=== PATIENT | female | born 2000 | race Caucasian/White ===

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

== ENCOUNTER 2020-01-04 14:56 | Emergency (ER) | payer OTHER ==
[~2020-01-04] VITALS: Ht 177.8 cm; Wt 114.5 kg
[2020-01-04 14:58] VITALS: BP 121/58
[2020-01-04] MEDS ORDERED: CIPROFLOXACIN HC OTIC SUSPENSION AD ONE (15:45)
[2020-01-04] MEDS ORDERED: CIPRODEX AD (15:46)
== END 2020-01-04 15:53 | disposition home or self-care (01) ==
LOC: M ED 14:56
DX: H60.8X1 Other otitis externa, right ear (principal)

== ENCOUNTER 2020-03-04 13:17 | Emergency (ER) | payer OTHER ==
[~2020-03-04 13:17] MED LIST changes: +CIPRODEX AD
== END 2020-03-04 14:59 | disposition home or self-care (01) ==
LOC: M ED 13:17
DX: J02.9 Acute pharyngitis, unspecified (principal); R50.9 Fever, unspecified

== ENCOUNTER 2020-07-04 18:05 | Emergency (ER) | payer OTHER ==
[~2020-07-04] VITALS: Ht 177.8 cm; Wt 113.6 kg
[2020-07-04] MEDS ORDERED: METOCLOPRAMIDE 10 MG TAB PO ONE (18:30)
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
[2020-07-04 20:27] VITALS: BP 136/61
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
== END 2020-07-04 20:31 | disposition home or self-care (01) ==
LOC: M ED 18:05 → EDBD 18:05 → M ED 20:31
DX: S00.93XA Contusion of unspecified part of head, initial encounter (principal); S13.4XXA Sprain of ligaments of cervical spine, initial encounter; S63.602A Unspecified sprain of left thumb, initial encounter; V47.6XXA Car passenger injured in collision with fixed or stationary object in traffic accident, initial encounter; Y92.410 Unspecified street and highway as the place of occurrence of the external cause

== ENCOUNTER 2021-01-31 09:26 | Emergency (ER) | payer OTHER ==
[~2021-01-31] VITALS: Ht 177.8 cm; Wt 104.5 kg
[~2021-01-31 09:26] MED LIST changes: +CIPR7.5D5 AD; -CIPRODEX AD
[2021-01-31] MEDS ORDERED: ACETAMINOPHEN 500 MG TAB PO ONE (10:00)
[2021-01-31 11:08] LABS: MONO SCRN NEGATIVE (NEGATIVE)
[2021-01-31] MEDS ORDERED: PENI500T PO (12:19)
[2021-01-31 12:36] VITALS: BP 110/61
== END 2021-01-31 12:38 | disposition home or self-care (01) ==
LOC: M ED 09:26
DX: Z20.822 Contact with and (suspected) exposure to COVID-19 (principal); J02.9 Acute pharyngitis, unspecified; J03.90 Acute tonsillitis, unspecified; F17.200 Nicotine dependence, unspecified, uncomplicated
CPT/HCPCS: 84702; 86308; 99283; U0003

== ENCOUNTER 2021-03-28 19:50 | Emergency (ER) | payer OTHER ==
[~2021-03-28] VITALS: Ht 177.8 cm; Wt 104.5 kg
[~2021-03-28 19:50] MED LIST changes: +PENI500T PO
[2021-03-28] MEDS ORDERED: LIDOCAINE W/EPINEPHRINE 1% 20ML VIAL SC ONE (20:25)
[2021-03-28] MEDS ORDERED: ACETAMINOPHEN 325 MG TAB PO ONE (22:55)
[2021-03-28 22:57] VITALS: BP 130/78
== END 2021-03-28 22:58 | disposition home or self-care (01) ==
LOC: M ED 19:50
DX: S01.81XA Laceration without foreign body of other part of head, initial encounter (principal); F43.0 Acute stress reaction; F32.9 Major depressive disorder, single episode, unspecified; F17.200 Nicotine dependence, unspecified, uncomplicated; F12.10 Cannabis abuse, uncomplicated; X78.8XXA Intentional self-harm by other sharp object, initial encounter; Y92.9 Unspecified place or not applicable; Y93.89 Activity, other specified; Y99.9 Unspecified external cause status

== ENCOUNTER 2021-04-02 10:37 | Emergency (ER) | payer OTHER ==
[~2021-04-02] VITALS: Ht 177.8 cm; Wt 100.4 kg
[2021-04-02 10:37] VITALS: BP 143/83
== END 2021-04-02 13:40 | disposition left against medical advice (07) ==
LOC: M ED 10:37
DX: Z53.21 Procedure and treatment not carried out due to patient leaving prior to being seen by health care provider (principal)

== ENCOUNTER → 2022-04-27 | Outpatient (CLI) | payer MEDICAID, OTHER ==
[2022-04-27 18:02] LABS: BASO % 0.1 % (0.0-1.0); EOS # 0.2 10^3/uL (0.0-0.5); EOS % 1.3 % (0.0-3.0); HEMATOCRIT 37.4 % (36.0-47.0); HEMOGLOBIN 12.1 g/dl (12.0-15.5); LYMPH % 22.1 % (24.0-44.0); MEAN CORPUSCULAR HEMOGLOBIN 32.2 pg (27.0-33.0); MEAN CORPUSCULAR HGB CONC 32.4 g/dl (32.0-36.5); MEAN CORPUSCULAR VOLUME 99.5 fl (80.0-96.0); MONO # 0.8 10^3/uL (0.0-0.8); MONO % 5.6 % (2.0-8.0); NEUTROPHILS # 9.5 10^3/uL (1.5-8.5); NEUTROPHILS % 70.4 % (36.0-66.0); PLATELET COUNT, AUTOMATED 221 10^3/uL (150-450); RED BLOOD COUNT 3.76 10^6/uL (4.00-5.40); WHITE BLOOD COUNT 13.5 10^3/uL (4.0-10.0)
[2022-04-27 20:15] LABS: HEPATITIS C VIRUS ABY INDEX < 0.0 INDEX (<0.8); HIV 1&2 SCREEN CENTAUR NEGATIVE (NEGATIVE)
[2022-04-27 21:06] LABS: GC DNA AMPLIFICATION NEGATIVE (NEGATIVE)
== END ==
LOC: M PLALAB 15:06
PROVIDERS: ATTEND Obstetrics & Gynecology
DX: Z34.91 Encounter for supervision of normal pregnancy, unspecified, first trimester (principal)

== ENCOUNTER → 2022-06-21 | Outpatient (CLI) | payer OTHER | LOC: M WHC 12:10 | PROVIDERS: ATTEND Obstetrics & Gynecology | DX: Z36.89 Encounter for other specified antenatal screening (principal); Z3A.19 19 weeks gestation of pregnancy ==

== ENCOUNTER → 2022-08-27 | Outpatient (CLI) | payer OTHER | LOC: M WHC 12:03 | PROVIDERS: ATTEND Obstetrics & Gynecology | DX: Z36.2 Encounter for other antenatal screening follow-up (principal) ==

== ENCOUNTER → 2022-09-02 | Outpatient (CLI) | payer OTHER ==
[2022-09-02 13:50] LABS: HEMATOCRIT 36.7 % (36.0-47.0); HEMOGLOBIN 11.9 g/dl (12.0-15.5); MEAN CORPUSCULAR HEMOGLOBIN 33.2 pg (27.0-33.0); MEAN CORPUSCULAR HGB CONC 32.4 g/dl (32.0-36.5); MEAN CORPUSCULAR VOLUME 102.5 fl (80.0-96.0); PLATELET COUNT, AUTOMATED 189 10^3/uL (150-450); RED BLOOD COUNT 3.58 10^6/uL (4.00-5.40)
[2022-09-02 16:05] LABS: GC DNA AMPLIFICATION NEGATIVE (NEGATIVE)
[2022-09-03 07:07] LABS: CYTOMEGALOVIRUS IgG ANTIBODY <0.60 U/mL (0.00-0.59); CYTOMEGALOVIRUS IgM ANTIBODY <30.0 AU/mL (0.0-29.9); TOXOPLASMA IgG ABY <3.0 IU/mL (0.0-7.1)
== END ==
LOC: M PLALAB 10:21
PROVIDERS: ATTEND Obstetrics & Gynecology
DX: O36.5930 Maternal care for other known or suspected poor fetal growth, third trimester, not applicable or unspecified (principal); Z3A.00 Weeks of gestation of pregnancy not specified

== ENCOUNTER → 2022-09-10 | Outpatient (CLI) | payer OTHER | LOC: M WHC 12:09 | PROVIDERS: ATTEND Obstetrics & Gynecology | DX: O36.5930 Maternal care for other known or suspected poor fetal growth, third trimester, not applicable or unspecified (principal); Z3A.30 30 weeks gestation of pregnancy ==

== ENCOUNTER → 2022-09-17 | Outpatient (CLI) | payer OTHER | LOC: M WHC 13:07 | PROVIDERS: ATTEND Obstetrics & Gynecology | DX: O36.5930 Maternal care for other known or suspected poor fetal growth, third trimester, not applicable or unspecified (principal); Z3A.32 32 weeks gestation of pregnancy ==

== ENCOUNTER → 2022-09-24 | Outpatient (CLI) | payer OTHER | LOC: M WHC 13:38 | PROVIDERS: ATTEND Obstetrics & Gynecology | DX: O36.5930 Maternal care for other known or suspected poor fetal growth, third trimester, not applicable or unspecified (principal) ==

== ENCOUNTER → 2022-09-29 | Outpatient (CLI) | payer OTHER | LOC: M WHC 14:22 | PROVIDERS: ATTEND Obstetrics & Gynecology | DX: O28.8 Other abnormal findings on antenatal screening of mother (principal); O36.5930 Maternal care for other known or suspected poor fetal growth, third trimester, not applicable or unspecified; Z3A.33 33 weeks gestation of pregnancy ==

== ENCOUNTER → 2022-10-08 | Outpatient (CLI) | payer OTHER | LOC: M WHC 13:15 | PROVIDERS: ATTEND Obstetrics & Gynecology | DX: O36.5930 Maternal care for other known or suspected poor fetal growth, third trimester, not applicable or unspecified (principal); Z3A.35 35 weeks gestation of pregnancy ==

== ENCOUNTER → 2022-10-14 | Outpatient (REF) | payer OTHER | LOC: M PLALAB 09:47 | PROVIDERS: ATTEND Advanced Practice Midwife | DX: Z34.80 Encounter for supervision of other normal pregnancy, unspecified trimester (principal) ==

== ENCOUNTER 2022-11-05 15:55 | Inpatient (IN) | payer OTHER ==
[~2022-11-05] VITALS: Ht 175.3 cm; Wt 98.3 kg
[2022-11-05 16:32] VITALS: BP 130/59
[2022-11-05] MEDS ORDERED: METHYLERGONOVINE MALEATE 0.2MG/ML 1ML VIAL IM PRN (17:30)
[2022-11-05] MEDS ORDERED: miSOPROStol 50MCG 1/2 TABLET PO SCH (17:30)
[2022-11-05] MEDS ORDERED: CARBOPROST TROMETHAMINE 250 MCG/ML AMP IM PRN (17:30)
[2022-11-05] MEDS ORDERED: OXYTOCIN DRIP 30 UNITS in IV 1 EA IV PRN (17:30)
[2022-11-05] MEDS ORDERED: TRANEXAMIC ACID INJection 1,000 MG in NS 100 ML IV PRN (17:30)
[2022-11-05] MEDS ORDERED: LIDOCAINE 1% MDV 20ML VIAL INFIL PRN (17:30)
[2022-11-05 17:41] VITALS: BP 130/65
[2022-11-05 17:46] LABS: HEMATOCRIT 33.7 % (36.0-47.0); MEAN CORPUSCULAR HGB CONC 32.6 g/dl (32.0-36.5); MEAN CORPUSCULAR VOLUME 101.2 fl (80.0-96.0); PLATELET COUNT, AUTOMATED 226 10^3/uL (150-450); RED BLOOD COUNT 3.33 10^6/uL (4.00-5.40); WHITE BLOOD COUNT 15.6 10^3/uL (4.0-10.0)
[2022-11-05 18:49] VITALS: BP 136/62
[2022-11-05 19:51] VITALS: BP 122/64
[2022-11-05 21:47] VITALS: BP 120/57
[2022-11-05 23:14] VITALS: BP 119/59
[2022-11-05] MEDS ORDERED: OXYTOCIN DRIP 30 UNITS in IV 1 EA IV SCH (23:35)
[2022-11-05] MEDS ORDERED: diphenhydrAMINE 50MG CAP PO PRN (23:45)
[2022-11-06] VITALS (57 sets, daily range): BP systolic 89–177; BP diastolic 46–81
[2022-11-06] MEDS: LR 1,000 ML IV SCH ×4 (00:27→16:41)
[2022-11-06] MEDS ORDERED: PROMETHAZINE 25MG/ML 1ML VIAL IV ONE ×2 (08:00→11:50)
[2022-11-06] MEDS ORDERED: BUTORPHANOL 2 MG/ML 1ML VIAL IV ONE ×2 (08:00→11:50)
[2022-11-06] MEDS ORDERED: diphenhydrAMINE 50MG/ML VIAL IV PRN (17:30)
[2022-11-06] MEDS ORDERED: LR 500 ML IV PRN (17:30)
[2022-11-06] MEDS ORDERED: ePHEDrine SULFATE 25 MG/5 ML(5MG/ML) SYRINGE IVP PRN (17:30)
[2022-11-06] MEDS ORDERED: ONDANSETRON 4MG 2ML VIAL IV PRN ×2 (17:30→23:10)
[2022-11-06] MEDS ORDERED: EPIDURAL/PCA KEYS XX PRN (17:30)
[2022-11-06] MEDS ORDERED: NALOXONE INJ 0.4MG/1ML VIAL IV PRN (17:30)
[2022-11-06] MEDS: FENTANYL/ROPIVACAINE/NACL BAG 100 ML EPIDURAL SCH (17:52)
[2022-11-06] MEDS ORDERED: TRANEXAMIC ACID INJection 1,000 MG in NS 100 ML IV PRN (21:55)
[2022-11-06] MEDS ORDERED: ceFAZolin SOD 2 GM in IV 1 EA IV ONE (21:55)
[2022-11-06] MEDS ORDERED: CARBOPROST TROMETHAMINE 250 MCG/ML AMP IM PRN (21:55)
[2022-11-06] MEDS ORDERED: BICITRA 30ML SOLN UDC PO ONE (21:55)
[2022-11-06] MEDS ORDERED: AZITHROMYCIN INJ 500 MG, VIAL MATE ADAPTER 1 EACH in NS 250 ML IV ONE (21:55)
[2022-11-06] MEDS ORDERED: METHYLERGONOVINE MALEATE 0.2MG/ML 1ML VIAL IM PRN (21:55)
[2022-11-06] MEDS ORDERED: ceFAZolin 2 GM/D5W 50 ML IV BAG As Ordered ONE (21:59)
[2022-11-06] MEDS ORDERED: BICITRA 30ML SOLN UDC As Ordered ONE (21:59)
[2022-11-06] MEDS ORDERED: KETOROLAC 60MG 2ML VIAL As Ordered ONE (22:34)
[2022-11-06] MEDS ORDERED: LIDOCAINE 2% W/EPINEPHRINE 20ML VIAL **PRES FREE As Ordered ONE (22:34)
[2022-11-06] MEDS ORDERED: ONDANSETRON 4MG 2ML VIAL As Ordered ONE (22:34)
[2022-11-06 22:42] LABS: CORD GAS ABE V -1.7; CORD GAS HCO3 V 23.3 MEQ/L; CORD GAS O2 SAT V 91.7 %; CORD GAS PCO2 V 40.5 mmHg; CORD GAS PH V 7.378 UNITS; CORD GAS PO2 V 46.1 mmHg; CORD GAS SBC V 22.9 MEQ/L; CORD GAS TCO2 V 24.6 MEQ/L
[2022-11-06] MEDS ORDERED: MORPHINE PRES-FREE INJ 10 MG/10 ML VIAL As Ordered ONE (22:47)
[2022-11-06 22:55] LABS: CORD GAS ABE A -4.3; CORD GAS O2 SAT A 63.4 %; CORD GAS PCO2 A 44.8 mmHg; CORD GAS PH A 7.309 UNITS; CORD GAS PO2 A 26.3 mmHg; CORD GAS SBC A 20.2 MEQ/L; CORD GAS TCO2 A 23.4 MEQ/L
[2022-11-06] MEDS ORDERED: MEPERIDINE 50 MG/ML 1ML VIAL As Ordered ONE (22:59)
[2022-11-06] MEDS ORDERED: OXYTOCIN DRIP 30 UNITS in IV 1 EA IV SCH (23:10)
[2022-11-06] MEDS ORDERED: SIMETHICONE 80MG CHEW TAB PO PRN (23:10)
[2022-11-06] MEDS ORDERED: ANUSOL HC CREAM 30GM TOP PRN (23:10)
[2022-11-06] MEDS ORDERED: ACETAMINOPHEN 500 MG TAB PO PRN (23:10)
[2022-11-06] MEDS ORDERED: PERCOCET 5MG/325MG TAB PO PRN (23:10)
[2022-11-06] MEDS ORDERED: RHOGAM 300MCG (1500IU) INJ IM SCH (23:10)
[2022-11-06] MEDS ORDERED: IBUP80TA PO (23:13)
[2022-11-06] MEDS ORDERED: COLA100C5 PO (23:13)
[2022-11-06] MEDS ORDERED: PERCOCET PO (23:14)
[2022-11-06] MEDS ORDERED: OXYTOCIN 30UNITS IN 0.9% NaCl 500ML IV BAG As Ordered ONE (23:34)
[2022-11-07] MEDS ORDERED: PERCOCET 5MG/325MG TAB As Ordered ONE (00:06)
[2022-11-07 02:54] VITALS: BP 112/58
[2022-11-07] MEDS: FENTANYL/ROPIVACAINE/NACL BAG 100 ML EPIDURAL SCH (03:30)
[2022-11-07] MEDS: KETOROLAC 30 MG/ML 1ML VIAL IV SCH ×3 (06:03→17:17)
[2022-11-07 07:05] LABS: HEMATOCRIT 29.6 % (36.0-47.0); HEMOGLOBIN 9.6 g/dl (12.0-15.5); MEAN CORPUSCULAR HEMOGLOBIN 33.2 pg (27.0-33.0); MEAN CORPUSCULAR HGB CONC 32.4 g/dl (32.0-36.5); MEAN CORPUSCULAR VOLUME 102.4 fl (80.0-96.0); PLATELET COUNT, AUTOMATED 188 10^3/uL (150-450); RED BLOOD COUNT 2.89 10^6/uL (4.00-5.40)
[2022-11-07] MEDS ORDERED: oxyCODONE 5MG TAB PO PRN (07:50)
[2022-11-07] MEDS ORDERED: MEPERIDINE 25 MG/ML 1ML VIAL IV PRN (07:50)
[2022-11-07] MEDS ORDERED: ONDANSETRON 4MG 2ML VIAL IV PRN (07:50)
[2022-11-07] MEDS ORDERED: HYDROMORPHONE HCL 0.5 MG/ 0.5 ML SYRINGE IV PRN (07:50)
[2022-11-07] MEDS: PERCOCET 5MG/325MG TAB PO PRN ×2 (07:58→15:38)
[2022-11-07] MEDS: PRENATAL VITAMINS CHEWABLE TABLET PO SCH (08:00)
[2022-11-07] MEDS: DOCUSATE SODIUM 100MG CAPSULE PO SCH ×2 (08:00→20:18)
[2022-11-07 10:00] VITALS: BP 119/55
[2022-11-07 14:00] VITALS: BP 110/60
[2022-11-07 18:00] VITALS: BP 101/54
[2022-11-07 22:00] VITALS: BP 108/55
[2022-11-08] MEDS: IBUPROFEN 800 MG TAB PO SCH ×2 (01:00→08:33)
[2022-11-08 02:00] VITALS: BP 113/67
[2022-11-08 06:00] VITALS: BP 90/53
[2022-11-08] MEDS: PRENATAL VITAMINS CHEWABLE TABLET PO SCH (08:32)
[2022-11-08] MEDS: DOCUSATE SODIUM 100MG CAPSULE PO SCH (08:33)
[2022-11-08] MEDS ORDERED: MEASLES,MUMPS,RUBELLA VACCINE INJ (MMR-II) SC.IMMUN ONE (09:00)
[2022-11-08 10:00] VITALS: BP 117/63
[2022-11-08 18:00] VITALS: BP 124/66
== END 2022-11-08 19:05 | disposition home or self-care (01) | DRG 540 ==
LOC: M LDI 15:55 → M OBS 11-07 00:57
PROVIDERS: ADMIT Advanced Practice Midwife; ATTEND Obstetrics & Gynecology
PROC: 3E0P7GC Introduction of Other Therapeutic Substance into Female Reproductive, Via Natural or Artificial Opening (ICD-10-PCS; 2022-11-05)
PROC: 10D00Z1 Extraction of Products of Conception, Low, Open Approach (ICD-10-PCS; principal; 2022-11-06 22:20)
DX: O36.5930 Maternal care for other known or suspected poor fetal growth, third trimester, not applicable or unspecified (principal); F17.290 Nicotine dependence, other tobacco product, uncomplicated; Z3A.39 39 weeks gestation of pregnancy; O99.334 Smoking (tobacco) complicating childbirth; O62.0 Primary inadequate contractions; Z37.0 Single live birth

== ENCOUNTER → 2024-02-29 | Outpatient (CLI) | payer OTHER ==
[~2024-02-29] MED LIST changes: +COLA100C5 PO; +IBUP80TA PO; +PERCOCET PO
[2024-02-29 12:51] LABS: HEMOGLOBIN 12.6 g/dl (12.0-15.5); MEAN CORPUSCULAR HEMOGLOBIN 31.5 pg (27.0-33.0); MEAN CORPUSCULAR HGB CONC 32.3 g/dl (32.0-36.5); MEAN CORPUSCULAR VOLUME 97.5 fl (80.0-96.0); PLATELET COUNT, AUTOMATED 212 10^3/uL (150-450); WHITE BLOOD COUNT 12.1 10^3/uL (4.0-10.0)
[2024-02-29 13:25] LABS: HIV 1&2 SCREEN NEGATIVE (NEGATIVE)
[2024-02-29 13:33] LABS: HEPATITIS C VIRUS ABY INDEX < 0.02 INDEX (<0.8)
== END ==
LOC: M PLALAB 10:48
PROVIDERS: ATTEND Advanced Practice Midwife
DX: Z34.81 Encounter for supervision of other normal pregnancy, first trimester (principal)

== ENCOUNTER → 2024-03-28 | Outpatient (CLI) | payer OTHER ==
[2024-03-28 14:43] LABS: GC DNA AMPLIFICATION NEGATIVE (NEGATIVE)
== END ==
LOC: M PLALAB 09:15
PROVIDERS: ATTEND Obstetrics & Gynecology
DX: Z34.81 Encounter for supervision of other normal pregnancy, first trimester (principal)

== ENCOUNTER → 2024-04-04 | Outpatient (CLI) | payer OTHER | LOC: M RAD 13:17 | PROVIDERS: ATTEND Physician Assistant | DX: Z53.9 Procedure and treatment not carried out, unspecified reason (principal) ==

== ENCOUNTER → 2024-04-17 | Outpatient (CLI) | payer OTHER | LOC: M PLALAB 12:51 | PROVIDERS: ATTEND Obstetrics & Gynecology | DX: Z36.89 Encounter for other specified antenatal screening (principal) ==

== ENCOUNTER → 2024-05-31 | Outpatient (CLI) | payer OTHER | LOC: M WHC 09:11 | PROVIDERS: ATTEND Obstetrics & Gynecology | DX: Z34.92 Encounter for supervision of normal pregnancy, unspecified, second trimester (principal) ==

== ENCOUNTER → 2024-06-19 | Outpatient (CLI) | payer OTHER ==
[2024-06-19 17:43] LABS: GLUCOSE CHALLENGE TEST 1 HOUR 74 MG/DL (LESS THAN 140)
[2024-06-19 17:46] LABS: HEMATOCRIT 36.4 % (36.0-47.0); HEMOGLOBIN 11.8 g/dl (12.0-15.5); MEAN CORPUSCULAR HEMOGLOBIN 33.2 pg (27.0-33.0); MEAN CORPUSCULAR HGB CONC 32.4 g/dl (32.0-36.5); MEAN CORPUSCULAR VOLUME 102.5 fl (80.0-96.0); PLATELET COUNT, AUTOMATED 197 10^3/uL (150-450); RED BLOOD COUNT 3.55 10^6/uL (4.00-5.40)
[2024-06-19 18:12] LABS: HIV 1&2 SCREEN NEGATIVE (NEGATIVE)
[2024-06-19 18:19] LABS: HEPATITIS C VIRUS ABY INDEX 0.02 INDEX (<0.8)
[2024-06-19 18:46] LABS: GC DNA AMPLIFICATION NEGATIVE (NEGATIVE)
== END ==
LOC: M PLALAB 13:10
PROVIDERS: ATTEND Obstetrics & Gynecology
DX: Z34.92 Encounter for supervision of normal pregnancy, unspecified, second trimester (principal)

== ENCOUNTER → 2024-07-20 | Outpatient (CLI) | payer OTHER | LOC: M WHC 14:25 | PROVIDERS: ATTEND Obstetrics & Gynecology | DX: Z34.92 Encounter for supervision of normal pregnancy, unspecified, second trimester (principal) ==

== ENCOUNTER → 2024-09-12 | Outpatient (REF) | payer OTHER | LOC: M SFHCWAGY 12:25 | PROVIDERS: ATTEND Nurse Practitioner Family | DX: Z36.89 Encounter for other specified antenatal screening (principal); Z3A.36 36 weeks gestation of pregnancy ==

== ENCOUNTER 2024-10-09 03:00 | Inpatient (IN) | payer OTHER ==
[~2024-10-09] VITALS: Ht 177.8 cm; Wt 112.4 kg
[2024-10-09] VITALS (35 sets, daily range): BP systolic 91–122; BP diastolic 48–71; TEMP 97.3; O2SAT 99–100
[2024-10-09] MEDS ORDERED: OXYTOCIN INJ 10UNITS/ML 1ML VIAL IM PRN (03:30)
[2024-10-09] MEDS ORDERED: CARBOPROST TROMETHAMINE 250 MCG/ML AMP IM PRN (03:30)
[2024-10-09] MEDS ORDERED: TRANEXAMIC ACID INJection 1,000 MG in NS 100 ML IV PRN (03:30)
[2024-10-09] MEDS ORDERED: LIDOCAINE 1% MDV 20ML VIAL INFIL PRN (03:30)
[2024-10-09] MEDS ORDERED: METHYLERGONOVINE MALEATE 0.2MG/ML 1ML VIAL IM PRN (03:30)
[2024-10-09] MEDS ORDERED: OXYTOCIN DRIP 30 UNITS in IV 1 EA IV PRN (03:30)
[2024-10-09 04:00] LABS: HEMATOCRIT 34.7 % (36.0-47.0); HEMOGLOBIN 11.6 g/dl (12.0-15.5); MEAN CORPUSCULAR HGB CONC 33.4 g/dl (32.0-36.5); MEAN CORPUSCULAR VOLUME 98.9 fl (80.0-96.0); PLATELET COUNT, AUTOMATED 230 10^3/uL (150-450); RED BLOOD COUNT 3.51 10^6/uL (4.00-5.40); WHITE BLOOD COUNT 17.3 10^3/uL (4.0-10.0)
[2024-10-09 05:53] LABS: HIV 1&2 SCREEN NEGATIVE (NEGATIVE)
[2024-10-09 06:00] LABS: HEPATITIS C VIRUS ABY INDEX 0.18 INDEX (<0.8)
[2024-10-09] MEDS: LACTATED RINGER'S 1000 ML IV STA (06:12)
[2024-10-09] MEDS ORDERED: OXYTOCIN DRIP 30 UNITS in IV 1 EA IV SCH (09:45)
[2024-10-09] MEDS: LR 1,000 ML IV SCH ×2 (10:18→21:56)
[2024-10-09] MEDS ORDERED: diphenhydrAMINE 50MG/ML VIAL IV PRN (17:20)
[2024-10-09] MEDS ORDERED: NALOXONE INJ 0.4MG/1ML VIAL IV PRN ×3 (17:20→22:10)
[2024-10-09] MEDS ORDERED: ONDANSETRON 4MG 2ML VIAL IV PRN ×2 (17:20→22:10)
[2024-10-09] MEDS ORDERED: EPIDURAL/PCA KEYS XX PRN (17:20)
[2024-10-09] MEDS: FENTANYL/ROPIVACAINE/NACL BAG 100 ML EPIDURAL SCH (18:15)
[2024-10-09] MEDS: LR 500 ML IV PRN (18:18)
[2024-10-09] MEDS: ePHEDrine SULFATE 25 MG/5 ML(5MG/ML) SYRINGE IVP PRN (18:19)
[2024-10-09] MEDS ORDERED: LIDOCAINE 2% W/EPINEPHRINE 20ML VIAL **PRES FREE As Ordered ONE (19:52)
[2024-10-09] MEDS ORDERED: OXYTOCIN 30UNITS IN 0.9% NaCl 500ML IV BAG As Ordered ONE (19:52)
[2024-10-09] MEDS ORDERED: MORPHINE PRES-FREE INJ 10 MG/10 ML VIAL As Ordered ONE (19:52)
[2024-10-09] MEDS: BICITRA 30ML SOLN UDC PO ONE (19:54)
[2024-10-09] MEDS: AZITHROMYCIN INJ 500 MG, VIAL MATE ADAPTER 1 EACH in NS 250 ML IV ONE (19:54)
[2024-10-09] MEDS: ceFAZolin SODIUM 2 GM in DEXTROSE 5% (D5W) ADV/MINI-BAG 50 ML IV ONE (20:05)
[2024-10-09] MEDS ORDERED: ePHEDrine SULFATE 25 MG/5 ML(5MG/ML) SYRINGE As Ordered ONE (20:23)
[2024-10-09] MEDS ORDERED: ACETAMINOPHEN 1000MG/100ML IV BAG As Ordered ONE (20:23)
[2024-10-09] MEDS ORDERED: PHENYLephrine 500MCG 5ML (100MCG/ML) SYRINGE As Ordered ONE (20:23)
[2024-10-09] MEDS ORDERED: KETOROLAC 60MG 2ML VIAL As Ordered ONE (20:31)
[2024-10-09] MEDS ORDERED: ONDANSETRON 4MG 2ML VIAL As Ordered ONE (20:31)
[2024-10-09] MEDS ORDERED: RHOGAM 300MCG (1500IU) INJ IM SCH (20:50)
[2024-10-09] MEDS ORDERED: DOCUSATE SODIUM 100MG CAPSULE PO PRN (20:50)
[2024-10-09] MEDS ORDERED: SIMETHICONE 80MG CHEW TAB PO PRN (20:50)
[2024-10-09 22:09] LABS: CORD GAS ABE A -3.8; CORD GAS HCO3 A 24.5 MMOL/L; CORD GAS O2 SAT A 18.7 %; CORD GAS PCO2 A 57.9 mmHg; CORD GAS PH A 7.244 UNITS; CORD GAS PO2 A 11.8 mmHg; CORD GAS SBC A 19.5 MMOL/L; CORD GAS TCO2 A 26.3 MMOL/L
[2024-10-09] MEDS ORDERED: METOCLOPRAMIDE INJ 10MG/2ML VIAL IV PRN (22:10)
[2024-10-09] MEDS ORDERED: HYDROMORPHONE HCL 0.5 MG/ 0.5 ML SYRINGE IV PRN (22:10)
[2024-10-09] MEDS ORDERED: MEPERIDINE 25 MG/ML 1ML VIAL IV PRN (22:10)
[2024-10-09] MEDS: SLF 3 ML SYR IV SCH (22:10)
[2024-10-09] MEDS ORDERED: oxyCODONE 5MG TAB PO PRN (22:10)
[2024-10-09] MEDS ORDERED: **NOTE PATIENT COMMENT** MISC XX SCH (22:10)
[2024-10-09] MEDS ORDERED: fentaNYL 100 MCG/2 ML INJECTION IV PRN (22:10)
[2024-10-10 00:30] VITALS: BP 107/59; O2SAT 100
[2024-10-10] MEDS: diphenhydrAMINE 50MG/ML VIAL IV PRN (00:45)
[2024-10-10 01:30] VITALS: BP 112/61; O2SAT 99
[2024-10-10] MEDS: KETOROLAC 30 MG/ML 1ML VIAL IV SCH (03:53)
[2024-10-10 04:30] VITALS: BP 114/52; O2SAT 98
[2024-10-10 05:58] VITALS: BP 109/54; O2SAT 99
[2024-10-10 07:05] LABS: HEMATOCRIT 31.2 % (36.0-47.0); HEMOGLOBIN 10.3 g/dl (12.0-15.5); PLATELET COUNT, AUTOMATED 213 10^3/uL (150-450); RED BLOOD COUNT 3.12 10^6/uL (4.00-5.40); WHITE BLOOD COUNT 21.3 10^3/uL (4.0-10.0)
[2024-10-10] MEDS ORDERED: COLA100C5 PO (07:46)
[2024-10-10] MEDS ORDERED: OXYC1TAB23 PO (07:46)
[2024-10-10] MEDS ORDERED: IBUP80TA PO (07:46)
[2024-10-10] MEDS: PRENATAL VITAMINS CHEWABLE TABLET PO SCH (07:49)
[2024-10-10 10:00] VITALS: BP 108/63; O2SAT 100
[2024-10-10] MEDS ORDERED: IBUPROFEN 800 MG TAB PO SCH (23:00)
[2024-10-11] MEDS ORDERED: MEASLES,MUMPS,RUBELLA VACCINE INJ (MMR-II) SC.IMMUN ONE (09:00)
== END 2024-10-10 11:48 | disposition home or self-care (01) | DRG 540 ==
LOC: M LDO 03:00 → M LDI 03:27 → M OBS 22:31
PROVIDERS: ADMIT Advanced Practice Midwife; ATTEND Specialist
PROC: 10D00Z1 Extraction of Products of Conception, Low, Open Approach (ICD-10-PCS; principal; 2024-10-09 19:45)
DX: O34.211 Maternal care for low transverse scar from previous cesarean delivery (principal); O48.0 Post-term pregnancy; O76 Abnormality in fetal heart rate and rhythm complicating labor and delivery; O66.41 Failed attempted vaginal birth after previous cesarean delivery; O77.0 Labor and delivery complicated by meconium in amniotic fluid; Z37.0 Single live birth

== ENCOUNTER 2025-04-16 14:10 | Emergency (ER) | payer OTHER ==
[~2025-04-16] VITALS: Ht 179.1 cm; Wt 111.1 kg
[~2025-04-16 14:10] MED LIST changes: -IBUP-1022 PO; +IBUP600T42 PO; +OXYC1TAB23 PO
[2025-04-16 17:11] VITALS: BP 116/66; TEMP 98.6; O2SAT 98
== END 2025-04-16 17:14 | disposition home or self-care (01) ==
LOC: EDBD 14:10 → M ED 14:10
DX: S00.83XA Contusion of other part of head, initial encounter (principal); Y92.9 Unspecified place or not applicable; Y93.9 Activity, unspecified; Y99.9 Unspecified external cause status; V49.50XA Passenger injured in collision with unspecified motor vehicles in traffic accident, initial encounter; F17.210 Nicotine dependence, cigarettes, uncomplicated; Z79.1 Long term (current) use of non-steroidal anti-inflammatories (NSAID); Z79.899 Other long term (current) drug therapy

== ENCOUNTER → 2025-04-22 | Outpatient (REF) | payer OTHER ==
[2025-04-24 15:03] LABS: HPV APTIMA Not Detected (Not Detected)
== END ==
LOC: M SFHCWAGY 13:06
PROVIDERS: ATTEND Specialist
DX: Z01.419 Encounter for gynecological examination (general) (routine) without abnormal findings (principal)
CPT/HCPCS: 87624; G0123

== ENCOUNTER 2025-06-09 01:40 | Emergency (ER) | payer OTHER ==
[~2025-06-09] VITALS: Ht 170.2 cm; Wt 109.5 kg
[2025-06-09 02:36] LABS: APPEARANCE, URINE HAZY (CLEAR); BACTERIA, URINE AUTO NEGATIVE (NEGATIVE); BILIRUBIN, URINE AUTO NEGATIVE (NEGATIVE); BLOOD, URINE BLOOD NEGATIVE (NEGATIVE); GLUCOSE, URINE (UA) AUTO NEGATIVE (NEGATIVE); KETONE, URINE AUTO TRACE mg/dL (NEGATIVE); LEUKOCYTE ESTERASE, URINE AUTO NEGATIVE (NEGATIVE); MUCUS, URINE LARGE (NEGATIVE); NITRITE, URINE AUTO NEGATIVE (NEGATIVE); PROTEIN, URINE AUTO 1+ mg/dL (NEGATIVE); RBC, URINE AUTO 0 /HPF (0-3); SPECIFIC GRAVITY URINE AUTO 1.034 (1.002-1.035); SQUAMOUS EPITHELIAL CELL UR AU 3 /HPF (0-6); UROBILINOGEN, URINE AUTO 2.0 mg/dL (0.0-2.0); WBC, URINE AUTO 0 /HPF (0-3)
[2025-06-09 02:41] LABS: BASO # 0.0 10^3/uL (0.0-0.2); BASO % 0.1 % (0.0-1.0); EOS # 0.2 10^3/uL (0.0-0.5); EOS % 1.8 % (0.0-3.0); LYMPH # 4.5 10^3/uL (1.5-5.0); LYMPH % 38.0 % (24.0-44.0); MONO # 0.6 10^3/uL (0.0-0.8); MONO % 4.7 % (2.0-8.0); NEUTROPHILS # 6.6 10^3/uL (1.5-8.5); NEUTROPHILS % 55.0 % (36.0-66.0); PLATELET COUNT, AUTOMATED 269 10^3/uL (150-450)
[2025-06-09 02:45] LABS: ALT/SGPT 19 U/L (7.0-40); AST/SGOT 19 U/L (<34); CALCIUM LEVEL 8.9 MG/DL (8.5-10.1); CARBON DIOXIDE LEVEL 24 MMOL/L (20-31); CHLORIDE LEVEL 107 MMOL/L (98-107); CREATININE FOR GFR 0.78 MG/DL (0.55-1.30); GLOMERULAR FILTRATION RATE > 90.0 (>60); POTASSIUM SERUM 3.2 MMOL/L (3.5-5.1); SODIUM LEVEL 141 MMOL/L (136-145)
[2025-06-09 02:51] LABS: HCG, SERUM QUALITATIVE NEGATIVE (NEGATIVE)
[2025-06-09] MEDS: ONDANSETRON 4MG/2ML VIAL IV ONE (06:46)
[2025-06-09] MEDS: NS (Normal Saline) 0.9% 1,000 ML IV ONE (06:46)
[2025-06-09] MEDS: POTASSIUM CHLORIDE 10% LIQ 20MEQ/15ML UDC PO ONE (06:47)
[2025-06-09] MEDS ORDERED: GI COCKTAIL 50 ML BTL(HYOSCYAMINE/MAALOX/LIDOCAINE VISCOUS)(1:3:1) PO ONE (07:25)
[2025-06-09] MEDS ORDERED: NS (Normal Saline) 0.9% 1,000 ML IV ONE (07:25)
[2025-06-09 08:02] LABS: CK-MB VALUE MASS < 1.0 NG/ML (<3.6)
[2025-06-09 08:03] LABS: CPK CREATINE PHOSPHOKINASE 155 U/L (34-145)
[2025-06-09] MEDS ORDERED: ISOVUE-370 76% 100 ML VIAL As Ordered ONE (08:04)
[2025-06-09 08:38] LABS: KETONE, URINE AUTO RFX NEGATIVE (NEGATIVE); LEUKOCYTE ESTERASE UR AUTO RFX NEGATIVE (NEGATIVE); NITRITE, URINE AUTO RFX NEGATIVE (NEGATIVE); RBC, URINE AUTO RFX 0 /HPF (0-3); SQUAM EPITHELIAL CELL UR AURFX 0 /HPF (0-6); WBC, URINE AUTO RFX 0 /HPF (0-3)
[2025-06-09 09:17] LABS: CK-MB VALUE MASS < 1.0 NG/ML (<3.6)
[2025-06-09 09:18] LABS: CPK CREATINE PHOSPHOKINASE 134 U/L (34-145)
[2025-06-09 10:00] VITALS: BP 109/61; TEMP 98.9; O2SAT 99
[2025-06-09] MEDS ORDERED: ONDA-282 PO (10:10)
[2025-06-09] MEDS ORDERED: OMEP40CA4 PO (10:10)
== END 2025-06-09 10:40 | disposition home or self-care (01) ==
LOC: M ED 01:40 → EDBD 01:40 → M ED 10:40
DX: A08.31 Calicivirus enteritis (principal); E87.6 Hypokalemia; R11.2 Nausea with vomiting, unspecified; R19.7 Diarrhea, unspecified; K21.9 Gastro-esophageal reflux disease without esophagitis; F41.9 Anxiety disorder, unspecified; F32.A Depression, unspecified; F17.290 Nicotine dependence, other tobacco product, uncomplicated; F12.10 Cannabis abuse, uncomplicated; Z79.1 Long term (current) use of non-steroidal anti-inflammatories (NSAID); Z79.899 Other long term (current) drug therapy
CPT/HCPCS: 71046; 74177; 80048; 80076; 81001; 82550; 82553; 83690; 84484; 84703; 85025; 87486; 87507; 87581; 87633; 87798; 93005; 93041; 96361; 96374; 99285; J2405; Q9967